=== PATIENT | female | born 1960 | race Hispanic/Latino ===

== ENCOUNTER 2017-05-03 16:02 | Emergency (ER) | payer BC, OTHER ==
--- NOTE | 2017-05-03 16:39 | C.PDOC ---
History Of Present Illness 57 year old female presents to the ED c/o of worsening abdominal pain associated with nausea, vomit, chills that started today at 05:00. Patient sates she has been constipated for the past 3 days. Patient states she took an enema and prune juice but with no improvement. Patient denies diarrhea, back pain, CP, SOB. Chief Complaint (Nursing): Abdominal Pain History Per: Patient History/Exam Limitations: no limitations Onset/Duration Of Symptoms: Days Current Symptoms Are (Timing): Still Present Context: Food Location Of Pain/Discomfort: LLQ Radiation Of Pain To:: None Quality Of Discomfort: "Pain" Associated Symptoms: Chills, Nausea, Vomiting, Constipation Exacerbating Factors: Food Alleviating Factors: None Recent travel outside of the [place]: No Additional History Per: Patient Abnormal Vaginal Bleeding: No Past Medical History Reviewed: Historical Data, Nursing Documentation, Vital Signs Vital Signs: Last Vital Signs Temp 97.4 F L 05/03/17 16:07 Pulse 89 05/03/17 17:21 Resp 18 05/03/17 17:21 BP 117/83 05/03/17 17:21 Pulse Ox 97 05/03/17 18:51 - Medical History PMH: Anxiety Surgical History: No Surg Hx Family History: States: Unknown Family Hx - Social History Hx Tobacco Use: No Hx Alcohol Use: Yes Hx Substance Use: No - Immunization History Hx Tetanus Toxoid Vaccination: No Hx Influenza Vaccination: Yes (11/2016) Hx Pneumococcal Vaccination: No Review Of Systems Constitutional: Negative for: Fever, Chills Cardiovascular: Negative for: Chest Pain Respiratory: Negative for: Cough, Shortness of Breath Gastrointestinal: Positive for: Nausea, Vomiting, Abdominal Pain, Constipation. Negative for: Diarrhea Musculoskeletal: Negative for: Back Pain Skin: Negative for: Rash Neurological: Negative for: Weakness, Numbness Physical Exam - Physical Exam Appears: Non-toxic, No Acute Distress Skin: Normal Color, Warm, Dry Head: Atraumatic, Normacephalic Eye(s): bilateral: Normal Inspection Nose: No Discharge Oral Mucosa: Moist Neck: Normal ROM, Supple Chest: Symmetrical Cardiovascular: Rhythm Regular, No Murmur Respiratory: Normal Breath Sounds, No Rales, No Rhonchi, No Wheezing Gastrointestinal/Abdominal: Soft, Tenderness (LLQ), No Guarding, No Rebound Extremity: Normal ROM, No Tenderness, No Swelling Neurological/Psych: Oriented x3 Gait: Steady ED Course And Treatment - Laboratory Results Result Diagrams: 05/03/17 17:26 05/03/17 17:26 O2 Sat by Pulse Oximetry: 97 (On RA) Pulse Ox Interpretation: Normal - CT Scan/US CT abd/pelvis Other Rad Studies (CT/US): Read By Radiologist, Radiology Report Reviewed CT/US Interpretation: PROCEDURE: CT Abdomen and Pelvis with contrast. HISTORY : abd pain. COMPARISON: None. TECHNIQUE: Contrast dose: 100 mL Omnipaque 350. Radiation dose: Total exam DLP = 349.85 mGy-cm. This CT exam was performed using one or more of the following dose reduction techniques: Automated exposure control, adjustment of the mA and/or kV according to patient size, and/or use of iterative reconstruction technique. FINDINGS: LOWER THORAX : Unremarkable. LIVER: Unremarkable. No gross lesion or ductal dilatation. GALLBLADDER AND BILE DUCTS: Unremarkable. PANCREAS: Unremarkable. No gross lesion or ductal dilatation. SPLEEN: Unremarkable. ADRENALS: Unremarkable. No mass. KIDNEYS AND URETERS: Unremarkable. No hydronephrosis. No solid mass. VASCULATURE: Unremarkable. No aortic aneurysm. BOWEL: Circumferential mural thickening of a moderate segment of rectosigmoid colon, consistent with infectious/inflammatory colitis. The remainder of the large bowel shows normal wall thickness. There is fluid seen throughout the colon, nonspecific. There is no evidence of bowel obstruction. APPENDIX: Not identified. PERITONEUM: Minimal ascites. LYMPH NODES: Unremarkable. No enlarged lymph nodes. BLADDER : Unremarkable. REPRODUCTIVE: Nondistended unremarkable uterus. BONES: No acute fracture. OTHER FINDINGS: None. IMPRESSION: Nonspecific mural thickening of a moderate segment of rectosigmoid colon. Likely infectious/ inflammatory colitis. About neoplasm. Minimal ascites. No evidence of bowel obstruction. Disposition - Disposition Referrals: [facility] [Outside] Disposition: HOME/ ROUTINE Disposition Time: 18:46 Condition: FAIR Prescriptions: Ciprofloxacin HCl [Cipro] 500 mg PO BID #20 tablet Metronidazole [Flagyl] 500 mg PO TID #30 tablet oxyCODONE/Acetaminophen [Percocet 5/325 mg Tab] 1 ea PO QID PRN #12 tab PRN Reason: Pain, Mild (1-3) Instructions: Microscopic Colitis Forms: [employer] (French) - Clinical Impression Clinical Impression: Colitis - Scribe Statement The provider has reviewed the documentation as recorded by the Scribe Efraín Jensen All medical record entries made by the Scribcarie were at my direction and personally dictated by me. I have reviewed the chart and agree that the record accurately reflects my personal performance of the history, physical exam, medical decision making, and the department course for this patient. I have also personally directed, reviewed, and agree with the discharge instructions and disposition.
[2017-05-03] MEDS ORDERED: Sodium Chloride 0.9% 1,000 ML IV ONE (16:49)
[2017-05-03] MEDS ORDERED: Morphine 4 MG/ML VIAL ONE (17:06)
[2017-05-03] MEDS ORDERED: Sodium Chloride 0.9% 1,000 ML ONE (17:06)
[2017-05-03 17:31] LABS: BASO % 0.2 % (0.0-2.0); EOS % 0.1 % (0.0-4.0); HEMOGLOBIN 15.3 g/dL (11.0-16.0); LYMPH % 16.1 % (20.0-40.0); MEAN CELL VOLUME 87.1 fL (81.0-99.0); MEAN CORPUSCULAR HEMOGLOBIN 29.6 pg (27.0-31.0); MEAN PLATELET VOLUME 7.7 fL (7.2-11.7); MONO # 0.9 K/uL (0.0-0.8); MONO % 7.4 % (0.0-10.0); NEUT # 9.4 K/uL (1.8-7.0); NEUT % 76.2 % (50.0-75.0); RBC 5.18 Mil/uL (3.80-5.20); RED CELL DISTRIBUTION WIDTH 14.2 % (11.5-14.5); WHITE BLOOD COUNT 12.3 K/uL (4.8-10.8)
[2017-05-03 17:44] LABS: ALB/GLOB RATIO 1.1 (1.0-2.1); ALBUMIN 5.1 g/dL (3.5-5.0); ALT/SGPT 33 U/L (9-52); AST/SGOT 29 U/L (14-36); BLOOD UREA NITROGEN 13 mg/dL (7-17); CALCIUM 10.2 mg/dl (8.6-10.4); GFR AFRICAN-AMERICAN > 60; GFR NON-AFRICAN AMERICAN > 60; LIPASE 65 U/L (23-300)
[2017-05-03] MEDS ORDERED: Iohexol 350mg/ml 100 ML ONE (17:55)
[2017-05-03 17:56] LABS: SQUAMOUS EPITHIAL 5 /hpf (0-5); URINE BILIRUBIN NEGATIVE (NEGATIVE); URINE BLOOD NEGATIVE (NEGATIVE); URINE CALCIUM OXALATE CRYSTALS MOD /hpf (<OCC); URINE CLARITY Hazy (Clear); URINE COLOR Amber (YELLOW); URINE GLUCOSE (UA) 1+ mg/dL (Normal); URINE LEUKOCYTE ESTERASE TRACE Leu/uL (Negative); URINE PROTEIN 1+ mg/dL (NEGATIVE)
--- NOTE | 2017-05-03 18:24 | CT ---
PROCEDURE: CT Abdomen and Pelvis with contrast HISTORY: abd pain COMPARISON: None. TECHNIQUE: Contrast dose: 100 mL Omnipaque 350 Radiation dose: Total exam DLP = 349.85 mGy-cm. This CT exam was performed using one or more of the following dose reduction techniques: Automated exposure control, adjustment of the mA and/or kV according to patient size, and/or use of iterative reconstruction technique. FINDINGS: LOWER THORAX: Unremarkable. LIVER: Unremarkable. No gross lesion or ductal dilatation. GALLBLADDER AND BILE DUCTS: Unremarkable. PANCREAS: Unremarkable. No gross lesion or ductal dilatation. SPLEEN: Unremarkable. ADRENALS: Unremarkable. No mass. KIDNEYS AND URETERS: Unremarkable. No hydronephrosis. No solid mass. VASCULATURE: Unremarkable. No aortic aneurysm. BOWEL: Circumferential mural thickening of a moderate segment of rectosigmoid colon, consistent with infectious/inflammatory colitis. The remainder of the large bowel shows normal wall thickness. There is fluid seen throughout the colon, nonspecific. There is no evidence of bowel obstruction. APPENDIX: Not identified PERITONEUM: Minimal ascites LYMPH NODES: Unremarkable. No enlarged lymph nodes. BLADDER: Unremarkable. REPRODUCTIVE: Nondistended unremarkable uterus BONES: No acute fracture. OTHER FINDINGS: None. IMPRESSION: Nonspecific mural thickening of a moderate segment of rectosigmoid colon. Likely infectious/ inflammatory colitis. About neoplasm. Minimal ascites. No evidence of bowel obstruction.
[2017-05-03] MEDS ORDERED: Oxycodone/Acetaminophen 5/325 mg Tab PO STA (18:56)
[2017-05-03] MEDS ORDERED: Oxycodone/Acetaminophen 5/325 mg Tab ONE (19:07)
[2017-05-03 19:10] VITALS: O2SAT 98
[2017-05-03 19:21] VITALS: BP 148/88; PULSE 86; RESP 18; TEMP 98.1
== END 2017-05-03 19:31 | disposition home or self-care (01) ==
LOC: C.ER 16:02
DX: K52.9 Noninfective gastroenteritis and colitis, unspecified (principal)
CPT/HCPCS: 74177; 80053; 81001; 83690; 85025; 96361; 96374; 99285; J2270; J7040; Q9967

== ENCOUNTER 2017-09-30 18:10 | Emergency (ER) | payer BC ==
[2017-09-30 18:21] VITALS: BP 143/92; PULSE 112; RESP 18; TEMP 98.7; O2SAT 94
[2017-09-30] MEDS ORDERED: Tetanus/Diphtheria Toxoids 0.5 ml Syringe IM ONE ×2 (18:36→18:47)
[2017-09-30] MEDS ORDERED: Bacitracin 500 Units/gm Oint Foilpak UD TOP STA (18:36)
[2017-09-30] MEDS ORDERED: Oxycodone/Acetaminophen 5/325 mg Tab PO STA (19:17)
[2017-09-30] MEDS ORDERED: Oxycodone/Acetaminophen 5/325 mg Tab ONE (19:17)
--- NOTE | 2017-09-30 20:48 | C.PDOC ---
History Of Present Illness 57 year old female patient presents to the ER with c/o headache, right side face pain from a trip and fall. Patient states she landed on her face and glasses. Patient reports she had a brief LOC and is nauseous. Patient denies vomiting, visual acuity change. - HPI Time Seen by Provider: 09/30/17 18:28 Chief Complaint (Nursing): Trauma History Per: Patient History/Exam Limitations: no limitations Injury Occurred (Timing): Just Before Arrival Location Of Injury: Anterior: Face Past Medical History Reviewed: Historical Data, Nursing Documentation, Vital Signs Vital Signs: Last Vital Signs Temp 98.7 F 09/30/17 18:17 Pulse 112 H 09/30/17 18:17 Resp 18 09/30/17 18:17 BP 143/92 H 09/30/17 18:17 Pulse Ox 94 L 09/30/17 22:06 - Medical History PMH: Anxiety, Depression Family History: States: Unknown Family Hx - Social History Hx Tobacco Use: No Hx Alcohol Use: Yes Hx Substance Use: No - Immunization History Hx Tetanus Toxoid Vaccination: No Hx Influenza Vaccination: Yes (11/2016) Hx Pneumococcal Vaccination: No Review Of Systems Except As Marked, All Systems Reviewed And Found Negative. Constitutional: Positive for: Other (right side face pain) ENT: Negative for: Other (visual acuity changes) Gastrointestinal: Positive for: Nausea. Negative for: Vomiting Neurological: Positive for: Other (LOC). Negative for: Headache Physical Exam - Physical Exam Appears: Well, Non-toxic, No Acute Distress Skin: Normal Color, Warm, Dry Head: Tenderness (right periorbital bony tenderness), Swelling (right side of face, right upper eyelid), Laceration (small 5 mm laceration below right eyebrow , no bleeding, no gross contamination. ), Other (echymosis in right periorbital area and left inferior periorbital area) Eye(s): bilateral: PERRL, EOMI, Other (ecchymosis around eyes b/l, right> left; swelling of right eyelid; ) Neck: Normal, Normal ROM, No Midline Cervical Tenderness, No Paracervical Tenderness Chest: No Deformity, No Tenderness Extremity: Normal ROM, No Tenderness, No Swelling Extremity: Bilateral: Atraumatic Neurological/Psych: Oriented x3, Normal Speech, Normal Cognition Gait: Steady ED Course And Treatment O2 Sat by Pulse Oximetry: 94 (RA) Pulse Ox Interpretation: Normal - CT Scan/US Head Other Rad Studies (CT/US): Read By Radiologist, Radiology Report Reviewed CT/US Interpretation: Name: MARK WHITTINGTON Age: 57Years F Date: 09/30/2017. Requesting Physician: Ryanantonio HUSEYINBrianne Olivares : 1960. [facility] Procedure Ordered As Accession Number of Images. CT HEAD WO CT HEAD W O CONTRAST [id number]. Provided Clinical History: fall/injury. CONFIDENTIALITY STATEMENT. This report is intended only for the use of the referring physician, and only in accordance with law, If you received this in error, call [phone]. Page 1 of 1. EXAM: CT Head Without Intravenous Contrast. CLINICAL HISTORY: 57 years old, female; Injury or trauma; Fall; Initial encounter; Concussion /. head injury; Additional info: Fall/injury. TECHNIQUE: Axial computed tomography images of the head/brain without intravenous contrast. All CT scans at this facility use at least one of these dose optimization techniques: automated. exposure control; mA and/or kV adjustment per patient size (includes targeted exams where dose is. matched to clinical indication); or iterative reconstruction. Coronal and sagittal reformatted images. were created and reviewed. COMPARISON: No relevant prior studies available. FINDINGS: Brain: Unremarkable. No hemorrhage. No significant white matter disease. No edema. Ventricles: Unremarkable. No ventriculomegaly. Bones/joints: Unremarkable. No acute fracture. Soft tissues : Unremarkable. Sinuses: Unremarkable as visualized. No acute sinusitis. Mastoid air cells: Unremarkable as visualized. No mastoid effusion. IMPRESSION : Normal head/brain CT. Thank you for allowing us to participate in the care of your patient. Dictated and Authenticated by: Zaid Quick MD. 09/30/2017 8:24 PM Eastern Time ([place] & [place]) orbitals Other Rad Studies (CT/US): Read By Radiologist, Radiology Report Reviewed CT/US Interpretation: Name: MARK WHITTINGTON Age: 57Years F Date: 09/30/2017. Requesting Physician: Justine FONTANEZBrianne Olivares : 1960. [facility] Procedure Ordered As Accession Number. of Images. CT TEMPORAL. BONES/IAC/ ORBITS/SELLA WO. CT ORBITS FACIALS W O. CONTRAST. [id number]. J. 442. Provided Clinical History: fall/injury. CONFIDENTIALITY STATEMENT. This report is intended only for the use of the referring physician, and only in accordance with law, If you received this in error, call [phone]. Page 1 of 1. EXAM: CT Orbits Without Intravenous Contrast. CLINICAL HISTORY: 57 years old, female; Injury or trauma; Fall; Initial encounter; Abrasion; Eyelid. and forehead; Uppeupper rightr right; Additional info: Fall/injury. TECHNIQUE : Axial computed tomography images of the orbits without intravenous contrast. All CT. scans at this facility use at least one of these dose optimization techniques: automated exposure. control; mA and/or kV adjustment per patient size (includes targeted exams where dose is matched to. clinical indication); or iterative reconstruction. Coronal and sagittal reformatted images were created. and reviewed. COMPARISON: CT - HEAD W/O CONTRAST 2017-09-30 19:37. FINDINGS: Orbits: The right globe is unremarkable. Sinuses: Unremarkable. No air-fluid levels. Bones/joints: No acute fracture. Soft tissues: Edema in the soft tissues of the right orbit. IMPRESSION: Edema in the soft tissues of the right orbit. Thank you for allowing us to participate in the care of your patient. Dictated and Authenticated by: Zaid Quick MD. 09/30/2017 8:26 PM Eastern Time ([place] & [place]) Progress Note: Impression: trip and fall: pain on right side of face. Plans: -- CT head. -- CT orbits. -- bacitracin. -- oxycodone. -- tetanus booster. Reassess: Laceration is cleaned . Patient is resting comfortably. Tolerating PO. Patient is advised to f/u with PCP in 1-2 days. Disposition - Disposition Disposition: HOME/ ROUTINE Disposition Time: 20:46 Condition: STABLE Additional Instructions: Follow up with your PMD within 1-2 days. Return to ED if feel worse. Prescriptions: Bacitracin OINT 1 applic TP TID #45 g Instructions: Taking Care of Bruises, Minor Head Injury (DC), Eye Contusion (DC ) Forms: [employer] (Sudanese) - Clinical Impression Clinical Impression: Contusion of face, Minor head injury - PA / [employer] / Resident Statement / has reviewed & agrees with the documentation as recorded. - Scribe Statement The provider has reviewed the documentation as recorded by the Miguel Angel Casarez Do All medical record entries made by the Barbaraibcarie were at my direction and personally dictated by me. I have reviewed the chart and agree that the record accurately reflects my personal performance of the history, physical exam, medical decision making, and the department course for this patient. I have also personally directed, reviewed, and agree with the discharge instructions and disposition.
--- NOTE | 2017-10-01 08:38 | CT ---
Date of service: 09/30/2017 PROCEDURE: CT HEAD WITHOUT CONTRAST. HISTORY: fall/injury COMPARISON: None available. TECHNIQUE: Axial computed tomography images were obtained through the head/brain without intravenous contrast. Radiation dose: Total exam DLP = 762 mGy-cm. This CT exam was performed using one or more of the following dose reduction techniques: Automated exposure control, adjustment of the mA and/or kV according to patient size, and/or use of iterative reconstruction technique. FINDINGS: HEMORRHAGE: No intracranial hemorrhage. BRAIN: No mass effect or edema. No atrophy or chronic microvascular ischemic changes. VENTRICLES: Unremarkable. No hydrocephalus. CALVARIUM: Unremarkable. PARANASAL SINUSES: Unremarkable as visualized. No significant inflammatory changes. MASTOID AIR CELLS: Unremarkable as visualized. No inflammatory changes. OTHER FINDINGS: None. IMPRESSION: No acute intracranial abnormality. If symptoms persists, consider correlation with MRI. These findings were preliminarily reported at 8:24 p.m. on 09/30/[address] Zaid Quick from [facility].
--- NOTE | 2017-10-01 08:55 | CT ---
Orbit CT History: Injury. Comparison: CT head dated 09/30/2017 Technique: Multiple contiguous axial images were performed through the orbits without the use of intravenous contrast. Subsequently, sagittal and coronal reformatted images were obtained. This CT exam was performed using one or more of the following dose reduction techniques: Automated exposure control, adjustment of the mA and/or kV according to patient size, and/or use of iterative reconstruction technique. Findings: Prominent edema and soft tissue swelling in the right orbit. Orbital globes appear preserved. Paranasal sinuses appear preserved. No evidence for acute displaced fracture. Incidentally noted is some productive change at the level of the atlantodental interval with bony hypertrophy and some mild bony fragmentation. Multilevel posterior disc osteophyte complexes noted in the cervical spine. Impression: Prominent edema and soft swelling in the right periorbital soft tissues. These findings were preliminarily reported at 8:26 p.m. on 09/30/[address] Zaid Quick from [facility].
== END 2017-09-30 21:08 | disposition home or self-care (01) ==
LOC: C.ER 18:10
DX: S00.83XA Contusion of other part of head, initial encounter (principal); S09.90XA Unspecified injury of head, initial encounter; W01.0XXA Fall on same level from slipping, tripping and stumbling without subsequent striking against object, initial encounter; Z23 Encounter for immunization